=== PATIENT | female | born 1985 | race Caucasian/White ===

== ENCOUNTER 2023-06-06 20:15 | Emergency (ER) | payer MEDICAID, SELFPAY ==
[2023-06-06 20:17] VITALS: BP 135/77; PULSE 80; RESP 16; TEMP 36.7; O2SAT 100; BMI 27.4
--- NOTE | 2023-06-06 20:22 | XR_ITS ---
The [address] [address] Patient Name: LAURA OTTO MRN: [id number] date: 1985 Sex: F Assigned Patient Location: ER Current Patient Location: ED.MAIN Accession/Order Number: [id number] Exam Date: 06/06/2023 20:32 Report Date: 06/06/2023 21:11 At the request of: ROMÁN MCFARLAND Procedure: XR foot RT min 3V EXAM: XR foot RT min 3V HISTORY: contusion COMPARISON: None. TECHNIQUE: 3 view study FINDINGS: There is a nondisplaced transverse fracture of the proximal phalanx of the fifth toe with minimal apex anterior angulation. The other bony structures are intact. Articulations are intact. Soft tissue swelling is noted about the fifth digit. XR/XR foot RT min 3V IMPRESSION: Nondisplaced proximal phalanx fracture of the fifth toe. Electronically authenticated by: Kathy ELLSWORTH Date: 06/06/2023 21:11
--- NOTE | 2023-06-06 20:34 | PC.NURSE ---
Bruising and swelling noted to outer area of right foot at base of 5th toe, ice applied.
--- NOTE | 2023-06-06 20:53 | ED.LOWEXI1 ---
HPI - Extremity Injury (Lower) General Chief Complaint: Extremity Injury, Lower Stated Complaint: Lower Extremity Injury Time Seen by Provider: 06/06/23 20:22 Source: patient Mode of arrival: Wheelchair Limitations: no limitations History of Present Illness HPI Narrative: Patient is a 38-year-old female presents to the emergency department for pain in the right foot, she dropped a crockpot on her foot several hours ago. She sustained a small abrasion to the dorsum of the foot. She reports pain with ambulation. No concern for . No other associated injuries. Related Data Home Medications Medication Instructions Recorded Confirmed norethindrone (contraceptive) 0.35 0.35 mg PO DAILY 06/06/23 06/06/23 mg tablet ([facility]ia) Previous Rx's Medication Instructions Recorded cephalexin 500 mg capsule 500 mg PO Q8H 5 days #15 caps 06/06/23 hydrocodone 5 mg-acetaminophen 325 1 tab PO Q6H PRN pain 3 days #12 06/06/23 mg tablet tabs Allergies Allergy/AdvReac Type Severity Reaction Status Date / Time No Known Drug Allergies Allergy Verified 06/06/23 20:20 Review of Systems ROS Constitutional Denies: fever or chills Ears, nose, mouth, and throat Denies: throat pain Cardiovascular Denies: chest pain Respiratory Denies: shortness of breath or cough Gastrointestinal Denies: nausea or vomiting Musculoskeletal Reports: extremity pain and extremity swelling; Denies: back pain or neck pain Integumentary/Breast Denies: rash Neurological Denies: headache Hematologic/Lymphatic Denies: easy bruising or easy bleeding PFSH PFSH Social History Smoking status: Never smoker Exam Narrative Exam Narrative: Gen.: Awake, alert, in no distress Head: Normocephalic, atraumatic ENT: Moist mucous membranes Respiratory: No respiratory distress Extremities: Mild edema noted to the dorsal lateral aspect of the right distal foot just proximal to the webspace between the fourth and fifth toes. There is a less than 1 cm superficial laceration, tissue does not pull apart or extend through the subcutaneous tissue. Minimal active bleeding. Limited flexion and extension of the toes due to pain. 2+ right DP pulse. No circumferential swelling or extension of laceration through the toes Psych: Normal mood and affect Neuro: No focal neuro deficit Skin: Warm, dry Constitutional Vital Signs, click to edit/add: Last Vital Signs Temp 98.0 F 06/06/23 20:17 Pulse 80 06/06/23 20:17 Resp 16 06/06/23 20:17 BP 135/77 06/06/23 20:17 Pulse Ox 100 06/06/23 20:17 O2 Del Method Room Air 06/06/23 20:17 Course Vital Signs Vital signs: Vital Signs Temperature 98.0 F 06/06/23 20:17 Pulse Rate 80 06/06/23 20:17 Respiratory Rate 16 06/06/23 20:17 Blood Pressure 135/77 06/06/23 20:17 Pulse Oximetry 100 06/06/23 20:17 Oxygen Delivery Method Room Air 06/06/23 20:17 Temperature 98.0 F 06/06/23 20:17 Pulse Rate 80 06/06/23 20:17 Respiratory Rate 16 06/06/23 20:17 Blood Pressure 135/77 06/06/23 20:17 Pulse Oximetry 100 06/06/23 20:17 Oxygen Delivery Method Room Air 06/06/23 20:17 MDM - Extremity Injury (Lower) MDM Narrative Medical decision making narrative: X-rays unremarkable on my evaluation, although the radiologist feels there is a nondisplaced fracture of the right proximal phalanx. Patient will be placed on an antibiotic for open fracture, tetanus updated in the ER and the patient was given analgesics. The area was cleansed, dressed with bacitracin and sterile dressing, bulky dressing and postop shoe. Patient remains neurovascularly intact. Rest, ice, elevate. Short course of analgesics given for home. Follow-up with PCP and return to the ER if symptoms change or worsen. Medical Records Attestation: I reviewed the patient's medical records. Imaging Data XR foot: Attestation: I personally reviewed and interpreted this imaging study as follows: My impression: NAD Discharge Plan Discharge Chief Complaint: Extremity Injury, Lower Clinical Impression: Abrasion, right foot, initial encounter, Contusion of right foot, Open fracture of proximal phalanx of toe Patient Disposition: Home, Self-Care Time of Disposition Decision: 20:54 Condition: Good Prescriptions / Home Meds: New hydrocodone-acetaminophen 5-325 mg tablet 1 tab PO Q6H PRN (Reason: pain) 3 Days Qty: 12 0RF Rx Instructions: DX: M79.679 cephalexin 500 mg capsule 500 mg PO Q8H 5 Days Qty: 15 0RF No Action norethindrone (contraceptive) [[facility]assia] 0.35 mg tablet 0.35 mg PO DAILY Instructions: Toe Fracture (ED), Foot Contusion (ED), Abrasion (ED) Stand Alone Forms: Portal Instructions Referrals: Corazon REYES [Primary Care Provider] - 1 week Discharge Date/Time: 06/06/23 21:37
[2023-06-06] MEDS: ADACEL DIPH,PERTUSS(ACELL),TET VAC/PF 0.5 ML ADULT SYRINGE IM (21:11)
[2023-06-06] MEDS: HYDROCODONE/ACET 5-325 MG TABLET 1 TAB PO (21:11)
[2023-06-06] MEDS: BACITRACIN 0.9 GM PACKET 1 PACKET TOPICAL (21:12)
[2023-06-06] MEDS: CEPHALEXIN 500 MG CAPSULE PO (21:30)
== END 2023-06-06 21:37 | disposition home or self-care (01) ==
PROVIDERS: Emergency Provider Internal Medicine; PCP Family Medicine
DX: S92.514B Nondisplaced fracture of proximal phalanx of right lesser toe(s), initial encounter for open fracture (principal); S90.31XA Contusion of right foot, initial encounter; S90.811A Abrasion, right foot, initial encounter; W20.8XXA Other cause of strike by thrown, projected or falling object, initial encounter; Z79.3 Long term (current) use of hormonal contraceptives; Z23 Encounter for immunization
CPT/HCPCS: 73630; 90471; 90715; 99285